=== PATIENT | female | born 1990 | race Caucasian/White ===

== ENCOUNTER 2017-09-18 10:53 | Emergency (ER) | payer OTHER ==
[~2017-09-18] VITALS: Ht 152.4 cm; Wt 47.2 kg
[~2017-09-18 10:53] MED LIST: GNP50LIQ PO; LORTA5 PO; PERC5TAB12 PO; Z.0.NO CURRENT MEDS
[2017-09-18 11:11] VITALS: BP 143/62; PULSE 80; RESP 16; TEMP 97.8; O2SAT 99
[2017-09-18] MEDS ORDERED: RELEMIS INH (12:11)
[2017-09-18 12:54] VITALS: BP 114/72; PULSE 76; RESP 16; O2SAT 98
--- NOTE | 2017-09-18 12:57 | PD ---
HPI Chief Complaint: GI Complaint Time Seen by Provider: 12:55 Travel History International Travel<30 days: No Contact w/Intl Traveler<30days: No Traveled to known affect area: No History of Present Illness HPI Patient presents with concerns of blood per stool on 2 occasions since this morning. Bright red in color. History of internal hemorrhoids with colonoscopy several years ago. Denies any abdominal pain. Denies any nausea vomiting or fever. Denies loose stools.. Menses is regular and normal. Denies . PFSH Past Medical History Cancer: No Cardiovascular Problems: Yes (TRICUSPID REGURITATION) Diabetes: No Glaucoma: No Hepatitis: No Hiatal Hernia: No Hypertension: No Inguinal Hernia: Yes Immunizations Current: Yes Thyroid Disease: No Ulcer: Yes Influenza Vaccination: No ?: Not LMP: 2 WEEKS : 1 Para: 1 Past Surgical History Abdominal Surgery: Yes (RIGHT INGUINAL HERNIA REPAIR) Section: Yes (03/02/14) Pacemaker: No Other Surgery: Yes Social History Alcohol Use: Yes (OCC) Tobacco Use: No Substance Use: No Allergies-Medications (Allergen,Severity, Reaction): Coded Allergies: No Known Allergies (Verified Adverse Reaction, Unknown, 09/18/17) Reported Meds & Prescriptions Reported Meds & Active Scripts Active Reported Relenza Inhalation Powder Blister (Zanamivir) 5 Mg/Blister Cap 10 Mg INH DAILY Two inhalations = 10 mg Review of Systems General / Constitutional: No: Fever Eyes: No: Visual changes HENT: No: Headaches Cardiovascular: No: Chest Pain or Discomfort Respiratory: No: Shortness of Breath Gastrointestinal: Positive: Hematochezia, No: Abdominal Pain Genitourinary: No: Dysuria Musculoskeletal: No: Pain Skin: No Rash Neurologic: No: Weakness Psychiatric: No: Depression Endocrine: No: Polydipsia Hematologic/Lymphatic: No: Easy Bruising Physical Exam Narrative GENERAL: Well-nourished, well-developed patient. SKIN: Focused skin assessment warm/dry. HEAD: Normocephalic. EYES: No scleral icterus. No injection or drainage. NECK: Supple, trachea midline. No JVD or lymphadenopathy. CARDIOVASCULAR: Regular rate and rhythm without murmurs, gallops, or rubs. RESPIRATORY: Breath sounds equal bilaterally. No accessory muscle use. GASTROINTESTINAL: Abdomen soft, non-tender, nondistended. MUSCULOSKELETAL: No cyanosis, or edema. BACK: Nontender without obvious deformity. No CVA tenderness. Rectal exam reveals good tone with palpation of 2 internal hemorrhoids. Hemoccult positive Data Data Last Documented VS Vital Signs Date Time Temp Pulse Resp B/P (MAP) Pulse Ox O2 Delivery O2 Flow Rate FiO2 09/18/17 12:54 76 16 114/72 (86) 98 Room Air 09/18/17 11:11 97.8 MDM Medical Decision Making Medical Screen Exam Complete: Yes Emergency Medical Condition: Yes Differential Diagnosis Internal hemorrhoids, fissure, diverticulitis Narrative Course Assessment and plan discussed with patient and at bedside. Diagnosis Primary Impression: Internal hemorrhoids Patient Instructions: General Instructions Additional Instructions: Encouraged a bland high-fiber diet. If bleeding persist follow-up with GI. Encouraged to keep stool soft and regular. Encouraged a liquid fiber supplement Med/Other Pt SpecificInfo: No Meds Exist/No RX given Disposition: 01 DISCHARGE HOME Condition: Good Jaden Minaya MD Sep 18, 2017 12:57
== END 2017-09-18 13:05 | disposition home or self-care (01) ==
LOC: PHED 10:53
DX: K64.8 Other hemorrhoids (principal); Z79.899 Other long term (current) drug therapy
CPT/HCPCS: 99282